=== PATIENT | male | born 1995 | race Caucasian/White ===

== ENCOUNTER 2018-12-20 17:02 | Emergency (ER) | payer OTHER ==
[2018-12-20] MEDS ORDERED: IBUPROFEN 800 MG TAB PO ONE (17:26)
--- NOTE | 2018-12-20 17:59 | EDPHY ---
General Time Seen by Provider: 12/20/18 17:20 Narrative: CLINICAL IMPRESSION: HIGH RIGHT ANKLE SPRAIN ASSESSMENT/PLAN: 23-year-old male presents to the emergency department with acute right ankle and foot pain after rolling the foot playing soccer tonight. No open wounds, distal neurovascular exam intact, no proximal lower leg or knee pain. X-rays of the foot and ankle show no evidence of acute fracture, widened mortise dislocation, Lisfranc injury, or proximal 5th metatarsal injury. Patient was placed in a walking boot, declined crutches. Rice treatment reviewed. Ortho referral provided. Warning signs return to ED sooner alignment discharge. DIFFERENTIAL DX: Differential includes but not limited to acute fracture, strain/sprain, joint dislocation, soft tissue contusion ED PROCEDURES: Procedure: Splint placement. A Shadi symptoms splint was applied to right ankle by validation technician, supervised by myself. After application of the splint I returned and re-examined the patient. The splint was adequately immobilizing the joint and distal to the splint the patient's circulation and sensation was intact. Patient declined crutches ED COURSE: Foot x-rays reviewed by myself with no evidence of obvious deformity, fracture, Lisfranc injury. Formal x-rays of the ankle ordered. 1804: Preliminary view of ankle x-rays show no evidence of acute fracture, dislocation, widened mortise CHIEF COMPLAINT: Right foot and ankle pain HPI: 23-year-old male presents to the emergency department with right foot and ankle pain after he rolled the foot playing soccer earlier today. Patient is not ambulatory due to the injury. No prior ankle or foot surgery. No open wounds. No reports of lower leg or knee pain. He did not injure anything else. He did not take anything prior to arrival but has been icing the area. PAST MEDICAL HISTORY: None reported Pertinent Past Surgical History: None reported Social History: Otherwise healthy REVIEW OF SYSTEMS: All other systems negative Constitutional: No fever, no chills Musculoskeletal: No deformity, + joint pain Skin: No rashes, color change or open wounds. Neurological: No sensory loss or weakness. PHYSICAL EXAM: General Appearance: Alert, oriented, appropriate for age, cooperative, appears uncomfortable, well hydrated, non-toxic appearing, VSS, no hypoxia. Neurological: Alert and oriented x 3, normal sensation and strength of extremities Skin: Warm, dry, no rashes, no nodules on palpation. Musculoskeletal: Obvious swelling to the dorsum of the right foot over the talus as well as the lateral malleolus. No open wounds. Distal neurovascular exam intact. Range of motion limited by pain. The pain moves to the distal aspect of the tib-fib but no proximal lower leg or knee pain. MEDICAL DECISION MAKING: Patient was seen independently. Secondary supervising physician at time of evaluation was Dr. Garcia. Diagnosis: High right ankle sprain. New, requires workup Summary: See assessment and plan for summary of ED visit Independent visualization of images, tracing, or specimens yes. Patient Progress: Stable for discharge. - Diagnostics Imaging Results: Imaging Impressions Foot X-Ray 12/20/18 17:07 Impression: Lateral ankle sprain. RIGHT FOOT (3 Views), at 5:16 PM: There is no fracture or dislocation. The tarsometatarsal alignment is anatomic. There is some dorsal lateral hindfoot soft tissue swelling. The base of the fifth metatarsal is intact. Impression: There is no acute osseous abnormality identified. Ankle X-Ray 12/20/18 17:32 Impression: Lateral ankle sprain. RIGHT FOOT (3 Views), at 5:16 PM: There is no fracture or dislocation. The tarsometatarsal alignment is anatomic. There is some dorsal lateral hindfoot soft tissue swelling. The base of the fifth metatarsal is intact. Impression: There is no acute osseous abnormality identified. - History Smoking Status: Never smoked - Objective Vital Signs: Initial Vital Signs Temperature (C) 36.6 C 12/20/18 17:03 Heart Rate 79 12/20/18 17:03 Respiratory Rate 16 12/20/18 17:03 Blood Pressure 151/85 H 12/20/18 17:03 O2 Sat (%) 100 12/20/18 17:03 O2 Delivery Mode Room Air Allergies/Adverse Reactions: No Known Allergies Allergy (Unverified 12/20/18 17:07) Home Medications: Medication Instructions Recorded NK [No Known Home Meds] 12/20/18 Medications Given: Discontinued Medications Ibuprofen (Motrin) 800 mg PO EDNOW ONE Stop: 12/20/18 17:27 Last Admin: 12/20/18 17:30 Dose: 800 mg Departure - Departure Disposition: Home, Routine, Self-Care Clinical Impression: High ankle sprain Qualifiers: Encounter type: initial encounter Laterality: right Qualified Code(s): S93.431A - Sprain of tibiofibular ligament of right ankle, initial encounter Condition: Good Instructions: Ankle Sprain (DC) Additional Instructions: DISCHARGE INSTRUCTIONS FROM YOUR DOCTOR Thank you for visiting our emergency department today. You were treated by a physician medical lab assistant today and your case was reviewed with our ED Attending physician. Please keep in mind that discharge from the emergency department does not mean that there is nothing wrong - it simply means that we have not identified an emergency condition that requires further evaluation or treatment in the hospital. You should always plan to follow up with primary care for re- evaluation of your condition in the next 2-3 days. If you have been referred to a specialist, please call as soon as possible (today or tomorrow) to schedule your follow up appointment at the appropriate time. X-RAYS OF THE ANKLE AND FOOT SHOW NO EVIDENCE OF FRACTURE OR DISLOCATION. YOU LIKELY SUFFERED A HIGH ANKLE SPRAIN. REST AND ELEVATE THE AFFECTED EXTREMITY MUCH POSSIBLE. ICE THE AFFECTED AREAS 20 MIN ON, 20 MIN OFF FOR THE NEXT SEVERAL DAYS. PLEASE USE TYLENOL OR IBUPROFEN OVER THE COUNTER IN APPROPRIATE DOSES OUTLINED ON YOUR DISCHARGE PAPERS. TAKE IBUPROFEN WITH FOOD AND A LARGE GLASS OF WATER. PLEASE FOLLOW-UP WITH ORTHOPEDICS IN 2-3 DAYS. A REFERRAL WAS GIVEN. RETURN TO THE EMERGENCY DEPARTMENT FOR SEVERE PAIN, LOSS OF SENSATION TO FOOT OR TOES, FEVER OR ANY OTHER CONCERNS. People present with illnesses and injuries in different ways, and it is always possible that we have missed something. You may always return for re-evaluation if symptoms worsen or if they are not improving or if you develop new/different symptoms. Again, thank you for choosing our emergency department. We hope that you feel better. Referrals: NONE *PRIMARY CARE P,. [Primary Care Provider] - As per Instructions Sherif Williamson MD [Medical Doctor] - 2-3 days, call for appt.
[2018-12-20 18:40] VITALS: BP 106/65
== END 2018-12-20 18:37 | disposition home or self-care (01) ==
DX: S93.431A Sprain of tibiofibular ligament of right ankle, initial encounter (principal); X50.1XXA Overexertion from prolonged static or awkward postures, initial encounter; Y93.66 Activity, soccer
CPT/HCPCS: L4386